=== PATIENT | female | born 1945 ===

== ENCOUNTER 2024-02-22 16:54 | Observation (INO) | payer OTHER ==
[2024-02-22 18:04] LABS: VENOUS BASE EXCESS 2.7 mmol/L (-2-2); VENOUS O2 SATURATION 53.5 % (70-80); VENOUS PCO2 50.9 mmHg (38-52); VENOUS PH 7.369 (7.310-7.410)
[2024-02-22 18:09] LABS: HEMATOCRIT 29.6 % (32.4-45.2); HEMOGLOBIN 9.4 GM/dL (10.7-15.3); MCHC 31.7 g/dl (32.0-36.0); MEAN PLT VOLUME 7.8 fl (7.5-11.1); PLATELET COUNT 332 10^3/uL (134-434); RBC 3.61 M/mm3 (3.60-5.2); WHITE BLOOD COUNT 4.1 K/mm3 (4.0-10.0)
[2024-02-22 18:20] LABS: PROTHROMBIN TIME (PATIENT) 22.2 SEC (9.7-13.0)
[2024-02-22 18:23] LABS: ACTIVATED PTT 33.3 SECONDS (25.2-36.5)
[2024-02-22 18:25] LABS: ADD RBC MORPHOLOGY YES
[2024-02-22 18:33] LABS: PHOSPHOROUS 4.6 mg/dL (2.5-4.9); POTASSIUM 4.5 mmol/L (3.5-5.1)
[2024-02-22 18:34] LABS: LACTIC ACID 4.9 mmol/L (0.4-2.0)
[2024-02-22 18:35] LABS: BLOOD UREA NITROGEN 34.3 mg/dL (7-18); CALCIUM 8.9 mg/dL (8.5-10.1)
[2024-02-22 18:38] LABS: CREATININE 1.4 mg/dL (0.55-1.3)
[2024-02-22 18:40] LABS: TOT PROT 5.7 g/dl (6.4-8.2)
[2024-02-22] MEDS ORDERED: ASPIRIN 81 MG CHEWABLE TABLETS ONE (18:58)
[2024-02-22] MEDS: ASPIRIN 81 MG CHEWABLE TABLETS PO ONE (19:05)
[2024-02-22] MEDS: SODIUM CHLORIDE 0.9% 500 ML INFUS.BAG IV ONE (19:05)
[2024-02-22 19:18] LABS: EPI CELLS 1 /uL (0-25.1); HYALINE CASTS 1 /uL (0-3.1); PH,URINE 5.5 (5.0-8.0); URINE APPEARANCE CLEAR; URINE BACTERIA 5735 /uL (0-1359); URINE BILIRUBIN NEGATIVE (NEGATIVE); URINE COLOR YELLOW; URINE GLUCOSE (UA) NEGATIVE (NEGATIVE); URINE KETONE NEGATIVE (NEGATIVE); URINE LEUK ESTERASE 1+ (NEGATIVE); URINE NITRITE NEGATIVE (NEGATIVE); URINE PROTEIN NEGATIVE (NEGATIVE); URINE RBC 89 /uL (0-23.9); URINE UROBILINOGEN 0.2 mg/dL (0.2-1.0); URINE WBC 257 /uL (0-25.8)
[2024-02-22 19:43] LABS: ANISOCYTOSIS 2+; MACROCYTOSIS 0; OVALOCYTE 1+
[2024-02-22] MEDS: HEPARIN INFUSION - 25,000 UNITS/500 ML INFUS.BAG IVPB SCH (20:00)
[2024-02-22] MEDS: HEPARIN NA (PORCINE) 5,000 UNITS/ML 1ML VIAL IVPUSH ONE ×2 (20:00→20:37)
[2024-02-22] MEDS ORDERED: HEPARIN NA (PORCINE) 5,000 UNITS/ML 1ML VIAL ONE (20:08)
[2024-02-22] MEDS ORDERED: HEPARIN INFUSION - 25,000 UNITS/500 ML INFUS.BAG IVPB ONE (20:08)
[2024-02-22] MEDS ORDERED: HEPARIN INFUSION - 500 ML IVPB SCH (20:30)
[2024-02-22] MEDS ORDERED: diazePAM CARPU-JECT 10 MG/2 ML DISP.SYRIN ONE (21:33)
[2024-02-22] MEDS: SODIUM CHLORIDE 0.9% 1000 ML INFUS.BAG IV STA (21:54)
[2024-02-22] MEDS: diazePAM CARPU-JECT 10 MG/2 ML DISP.SYRIN IVPUSH ONE (22:09)
[2024-02-22] MEDS: diazePAM 2 MG TABLET PO ONE (22:10)
[2024-02-23] MEDS ORDERED: CEFTRIAXONE 1 GM/50 ML BAG ONE (11:49)
[2024-02-23] MEDS: SODIUM CHLORIDE 1,000 ML IV SCH (11:51)
[2024-02-23] MEDS: CEFTRIAXONE 1,000 MG in DEXTROSE 5%-WATER - 50 ML IVPB ONE (11:51)
[2024-02-23 16:40] VITALS: RESP 18
[2024-02-23 21:29] VITALS: BP 90/78; PULSE 92; TEMP 98.2
[2024-02-23 21:42] VITALS: BMI 17.5
[2024-02-23] MEDS ORDERED: ATORVASTATIN CA 80 MG TABLET (FP) PO SCH (22:00)
== END 2024-02-23 21:46 | disposition short-term general hospital (02) ==
LOC: JER 16:54 → JERBED 02-23 16:32 → J4W 02-23 18:37
PROVIDERS: ADMIT Internal Medicine; ATTEND Internal Medicine
PROC: 3E03329 Introduction of Other Anti-infective into Peripheral Vein, Percutaneous Approach (ICD-10-PCS; principal; 2024-02-23)
PROC: 3E033NZ Introduction of Analgesics, Hypnotics, Sedatives into Peripheral Vein, Percutaneous Approach (ICD-10-PCS; 2024-02-23)
PROC: 3E033GC Introduction of Other Therapeutic Substance into Peripheral Vein, Percutaneous Approach (ICD-10-PCS; 2024-02-23)
PROC: 3E0337Z Introduction of Electrolytic and Water Balance Substance into Peripheral Vein, Percutaneous Approach (ICD-10-PCS; 2024-02-23)
DX: R79.89 Other specified abnormal findings of blood chemistry (principal); R07.9 Chest pain, unspecified; F41.8 Other specified anxiety disorders; I95.9 Hypotension, unspecified; I50.9 Heart failure, unspecified; J90 Pleural effusion, not elsewhere classified; Q21.10 Atrial septal defect, unspecified; I48.91 Unspecified atrial fibrillation; Z79.01 Long term (current) use of anticoagulants; Z85.118 Personal history of other malignant neoplasm of bronchus and lung; Z96.89 Presence of other specified functional implants; Z88.0 Allergy status to penicillin; Z88.8 Allergy status to other drugs, medicaments and biological substances
CPT/HCPCS: 0241U-QW; 36415; 71045-TC-FY; 80053; 81003; 82803; 83605; 83735; 84100; 84484; 85025; 85610; 85730; 86850; 86900; 86901; 87077; 87086; 87186; 93005; 93010; 96361; 96365; 96367; 96375; 99285-25; G0378; J1644